=== PATIENT | female | born 1995 | race Caucasian/White ===

== ENCOUNTER 2019-05-22 09:57 | Outpatient (CLI) | payer OTHER, SELFPAY ==
--- NOTE | 2019-05-22 10:15 | US_ITS ---
WS: [id number] ULTRASOUND ABDOMEN CLINICAL INFORMATION: ACUTE RIGHT UPPER QUADRANT ABDOMINAL PAIN COMPARISON: None. FINDINGS: Liver Size: Normal. Craniocaudal length: 14.4 cm. Echogenicity: Normal. Surface nodularity: None. Mass (size and location): None. Bile ducts Intrahepatic ducts: Normal. Common bile duct diameter: 3.3 mm. Gallbladder Cholelithiasis Gallstones: Present Gallbladder sludge: None. Gallbladder wall thickening: None. Pericholecystic fluid: None. Sonographic Hernandez sign: Absent. Pancreas Normal as visualized. Spleen Splenomegaly: None. Craniocaudal length: 10.8 cm. Right kidney: Normal. Hydronephrosis: None. Size: 10.9 cm x 4.6 cm x 5.7 cm Left kidney: Normal. Hydronephrosis: None. Size: 11.1 cm x 5.1 cm x 5.4 cm. Abdominal aorta and IVC Visualized portions are normal. Ascites: None. US/US abdomen complete* [id number] IMPRESSION: 1. Liver is normal. 2. Cholelithiasis. Normal common bile duct. No gallbladder wall thickening or pericholecystic fluid. 3. No hydronephrosis in either kidney.
== END 2019-05-22 09:58 | disposition home or self-care (01) ==
LOC: RAD 10:06
PROVIDERS: Family Provider Nurse Practitioner Family; PCP Nurse Practitioner Family; Visit Provider Chiropractor Orthopedic
DX: K80.20 Calculus of gallbladder without cholecystitis without obstruction (principal)
CPT/HCPCS: 76700

== ENCOUNTER 2019-05-26 19:36 | Emergency (ER) | payer OTHER, SELFPAY ==
[2019-05-26] VITALS (7 sets, daily range): BP systolic 118–132; BP diastolic 75–86; PULSE 70–72; RESP 16–18; TEMP 36.7; O2SAT 96–99; BMI 33.3
[2019-05-26 23:20] LABS: Bilirubin Urine 1+ (NEGATIVE); Blood Urine Neg (Negative); Glucose Urine UA Norm (Normal); Ketones Urine Negative (Negative); Leukocyte Esterase Urine 1+ (Negative); Nitrate Urine Negative (Negative); Protein Urine Neg (Negative); Specific Gravity, Urine 1.025 (1.005-1.030); Urine Appearance Cloudy (CLEAR); Urine Color Yellow (Yellow); Urobilinogen Urine 1 mg/dL (Negative); pH Urine 5 (5-7)
[2019-05-26 23:21] LABS: Add Urine Culture? No; Amorphous Sediment Urine 3+; Bacteria Urine 1+; Squamous Epithelial Cell Urine 0-4 (0-5)
[2019-05-27] VITALS (27 sets, daily range): BP systolic 117–122; BP diastolic 58–75; PULSE 65–79; RESP 16–18; TEMP 36.8; O2SAT 96–99
--- NOTE | 2019-05-27 00:41 | ED_ITS ---
HPI - Abdominal Pain General: Chief Complaint: Abdominal Pain Stated Complaint: GALLBLADDER ISSUE Time Seen by Provider: 05/26/19 23:55 History of Present Illness: HPI narrative: Patient is a 24-year-old female comes into the ED with right upper quadrant abdominal pain. She had an ultrasound done of her gallbladder couple days ago and gallstones were found. She has been referred to general surgery in [place] and has an appointment set up with them on May 28. She is here in the ED because she is having pain for the past couple days and feels like her pain is getting worse. Patient says currently her pain is about a 7/10 when pain gets acutely worse she feels like she gets chills and shakes. Patient denies fever, chest pain, shortness of breath, diarrhea, constipation, blood in the stool, dysuria, hematuria, numbness tingling to the extremities, weakness to the extremities, headache or back pain. Review of Systems General: Reports: 10 or more systems reviewed and unremarkable except in HPI and below PFSH ED PFSH: Statuses (acute, chronic, etc) shown below reflect problem list status as previously entered and may not be historically accurate Social History Smoking and tobacco status: current every day smoker Physical Exam Narrative: EXAM NARRATIVE: Patient is sitting comfortably on bed when I entered the room for the history and physical exam. She appeared in no acute pain or distress. Const: COMMON NORMALS: oriented x3 HENMT: COMMON NORMALS: normocephalic HEAD & SCALP: normocephalic MOUTH: oral and palatal mucosa normal THROAT: posterior oropharynx normal and uvula midline Neck/C-Spine: COMMON NORMALS: supple GENERAL: Yes normal visual inspection Resp: COMMON NORMALS: normal respiratory effort, no retractions, no use of accessory muscles and clear to auscultation bilaterally AUSCULTATION: clear to auscultation bilaterally Cardio: COMMON NORMALS: regular rate, regular rhythm, S1 normal heart sound, S2 normal heart sound, no gallops, no clicks, no murmurs and peripheral pulses 2+ throughout RATE: regular rate RHYTHM: regular rhythm HEART SOUNDS: S1 normal and S2 normal PERIPHERAL PULSES: pulses 2+ throughout GI: COMMON NORMALS: normal to inspection, nondistended, normoactive bowel sounds, soft to palpation and no masses INSPECTION: Yes central obesity PALPATION: Yes soft and Yes tender (mild with positive elliott sign.) Details: RUQ : COMMON NORMALS: Yes no CVA tenderness BLADDER/KIDNEY EXAM: Yes no CVA tenderness Back/Pelvis: COMMON NORMALS: no CVA tenderness Extremity: COMMON NORMALS: normal to inspection Neuro: COMMON NORMALS: oriented x3 GAIT: Yes normal gait Skin: COMMON NORMALS: no rashes or lesions noted GENERAL SKIN EXAM: no rashes or lesions noted Course Vital Signs: Vital signs: Vital Signs Temperature 98.2 F 05/27/19 02:16 Pulse Rate 65 05/27/19 02:16 Respiratory Rate 18 05/27/19 02:16 Blood Pressure 117/58 05/27/19 02:16 Pulse Oximetry 97 05/27/19 02:16 MDM - Abdominal Pain MDM Narrative: Medical decision making narrative: Patient is a 24-year-old female who comes to the ED with right upper quadrant pain. She isn't ready been evaluated at another facility and she has had an ultrasound of the right upper quadrant and gallstones are present. She was then referred to general surgery and her appointment with them is on May 29. Patient was given some medications to control the pain and told to go to scheduled general surgery appointment on May 29. She can return to the ED for reevalutation if symptoms continue to worsen Before May 29 appointment. Lab Data: Attestation: I reviewed the patient's lab results. Labs: Lab Results 05/26/19 05/27/19 05/27/19 Range/Units 21:16 00:44 00:44 WBC 11.0 H (4.0-10.0) 10^3/ uL RBC 4.07 L (4.1-5.3) 10^6/u L Hgb 11.4 L (11.5-15.3) g/dL Hct 36.0 L (37.0-47.0) % MCV 88.5 (81-99) fL MCH 28.0 (28.0-34.0) pg MCHC 31.7 (30.0-36.0) g/dL RDW 14.8 (12.1-15.1) % Plt Count 228 (130-400) 10^3/c mm MPV 11.6 H (7.4-10.4) fL Neut % (Auto) 62.7 % Lymph % (Auto) 27.2 % Millard % (Auto) 7.9 % Eos % (Auto) 1.6 % Baso % (Auto) 0.3 % Neut # (Auto) 6.9 (1.8-7.7) 10^3/u L Lymph # (Auto) 3.0 (0.8-4.8) 10^3/u L Millard # (Auto) 0.9 (0.2-0.9) 10^3/u L Eos # (Auto) 0.2 (0.0-0.8) 10^3/u L Baso # (Auto) 0.0 (0.0-0.1) 10^3/u L Nucleated RBC % (a uto) 0 % Nucleated RBCs # 0.0 /100WBC Sodium 138 (136-145) mmol/L Potassium 3.7 (3.5-5.1) mmol/L Chloride 105 (98-107) mmol/L Carbon Dioxide 23 (22-29) mmol/L Anion Gap 13.7 (5-19) BUN 11 (6-20) mg/dL Creatinine 0.4 L (0.5-0.9) mg/dL GFR Calculation 197.8 H (90-130) mL/min Glucose 87 (74-109) mg/dL Calcium 9.7 (8.6-10.0) mg/Dl Total Bilirubin 0.4 (0.15-1.2) mg/dL AST 16 (0-32) U/L ALT 19 (0-33) U/L Alkaline Phosphata se 116 H (35-105) IU/L Total Protein 7.5 (6.6-8.7) g/dL Albumin 4.4 (3.5-5.2) g/dL Globulin 3.1 (1.3-4.6) g/dL Urine Color Yellow (Yellow) Urine Appearance Cloudy (CLEAR) Urine pH 5 (5-7) Ur Specific Gravit y 1.025 (1.005-1.030) Urine Protein Neg (Negative) Urine Glucose (UA) Norm (Normal) Urine Ketones Negative (Negative) Urine Occult Blood Neg (Negative) Urine Nitrate Negative (Negative) Urine Bilirubin 1+ H (NEGATIVE) Urine Urobilinogen 1 H (Negative) mg/dL Ur Leukocyte Martha ase 1+ H (Negative) Urine RBC None (0-2) /hpf Urine WBC 5-10 H (0-5) /hpf Ur Squamous Epith Cells 0-4 H (0-5) Amorphous Sediment 3+ Urine Bacteria 1+ H (NONE) Discharge Plan Discharge Patient Disposition: Home, Self-Care Clinical Impression: Abdominal pain Qualifiers: Abdominal location: right upper quadrant Qualified Code(s): R10.11 - Right upper quadrant pain Condition: Stable Discharge Orders: Discharge Order (Routine); Ordered 05/27/19 Ordered By: Rajesh Mancera Referrals: Jocelyne Sanabria FNP [Primary Care Provider] - Discharge Diet: Advance as tolerated Discharge Activity: Increase activity as tolerated Patient Instructions: Cholecystitis (ED), Abdominal Pain (ED) Activity Restrictions/Additional Instructions: Go to your previously set up appointment with general surgery on May 29 for evaluation of gallbladder and gallstones. Take hydrocodone prescription as needed for breakout pain. Drink plenty of fluids. Return to the ED if symptoms worsen. Discharge Date/Time: 05/27/19 02:17 Coding Level of Care Code ED Hand Bindery Assembly Worker for Alessandro Fong
[2019-05-27] MEDS: ondansetron 4 MG Tablet PO (00:45)
[2019-05-27] MEDS: HYDROcodone-acetaminophen 7.5-325 mg Tablet 1 TAB PO (00:45)
[2019-05-27 00:52] LABS: Basophils % 0.3 %; Eosinophils # 0.2 10^3/uL (0.0-0.8); Eosinophils % 1.6 %; Hemoglobin 11.4 g/dL (11.5-15.3); Lymphocytes % 27.2 %; Mean Corpuscular HGB Conc 31.7 g/dL (30.0-36.0); Mean Corpuscular Volume 88.5 fL (81-99); Mean Platelet Volume 11.6 fL (7.4-10.4); Monocytes # 0.9 10^3/uL (0.2-0.9); Monocytes % 7.9 %; Neutrophils # 6.9 10^3/uL (1.8-7.7); Neutrophils % 62.7 %; Nucleated Red Blood Cells % 0 %; Platelet Count 228 10^3/cmm (130-400); Red Blood Count 4.07 10^6/uL (4.1-5.3); Red Cell Distribution Width 14.8 % (12.1-15.1)
[2019-05-27 01:06] LABS: Alanine Aminotransferase 19 U/L (0-33); Albumin Level 4.4 g/dL (3.5-5.2); Alkaline Phosphatase 116 IU/L (35-105); Anion Gap 13.7 (5-19); Aspartate Amino Transferase 16 U/L (0-32); Blood Urea Nitrogen 11 mg/dL (6-20); Calcium 9.7 mg/Dl (8.6-10.0); Carbon Dioxide 23 mmol/L (22-29); Chloride 105 mmol/L (98-107); Globulin 3.1 g/dL (1.3-4.6); Glomerular Filtration Rate 197.8 mL/min (90-130); Glucose 87 mg/dL (74-109); Potassium 3.7 mmol/L (3.5-5.1); Sodium 138 mmol/L (136-145); Total Bilirubin 0.4 mg/dL (0.15-1.2); Total Protein 7.5 g/dL (6.6-8.7)
[2019-05-27] MEDS: HYDROcodone-acetaminophen 5-325 mg Tablet 1 TAB PO (02:11)
== END 2019-05-27 02:17 | disposition home or self-care (01) ==
PROVIDERS: Emergency Medicine; Emergency Provider Physician Assistant; Family Provider Nurse Practitioner Family; PCP Nurse Practitioner Family
DX: R10.11 Right upper quadrant pain (principal); F17.210 Nicotine dependence, cigarettes, uncomplicated
CPT/HCPCS: 80053; 81001; 85025; 99283; Q0162

== ENCOUNTER → 2020-06-19 11:39 | Outpatient (BNVA) | payer MEDICAID, SELFPAY | PROVIDERS: Family Provider Nurse Practitioner Family; PCP Nurse Practitioner Family; Visit Provider Emergency Medicine | DX: J02.9 Acute pharyngitis, unspecified (principal) | CPT/HCPCS: 87071; 87880 ==

== ENCOUNTER → 2023-03-24 11:53 | Outpatient (BNVA) | payer MEDICAID, SELFPAY | PROVIDERS: Family Provider Nurse Practitioner Family; PCP Nurse Practitioner Family; Visit Provider Nurse Practitioner Family | DX: S69.91XA Unspecified injury of right wrist, hand and finger(s), initial encounter (principal); W22.09XA Striking against other stationary object, initial encounter | CPT/HCPCS: 73110; 73130 ==

== ENCOUNTER → 2023-03-27 14:47 | Outpatient (BNVA) | payer MEDICAID, SELFPAY | PROVIDERS: Family Provider Nurse Practitioner Family; PCP Nurse Practitioner Family; Visit Provider Emergency Medicine | DX: M25.531 Pain in right wrist (principal); M79.641 Pain in right hand | CPT/HCPCS: 73110; 73130 ==

== ENCOUNTER 2024-09-18 16:21 | Emergency (ER) | payer MEDICAID, SELFPAY ==
--- NOTE | 2024-09-18 16:29 | ECG_ITS ---
[facility] Test Date: 2024-09-18 Pat Name: Garret Harris Department: Room: Gender: Female Filterer: : 1995 Requested By: Deshaun Ruiz Order Number: [id number] Stacey MD: Karen Vuong M.D. Measurements Intervals [place] Rate: 70 P: 51 TN: 126 QRS: 59 QRSD: 85 T: 42 QT: 389 QTc: 421 Interpretive Statements SINUS RHYTHM WITH SINUS ARRHYTHMIA Compared to ECG 08/22/2016 00:57:18 No significant changes Electronically Signed On 09-20-2024 23:29:56 CDT by Karen Vuong M.D. [email or web address] [id number]
[2024-09-18 16:39] VITALS: BP 151/76; PULSE 77; TEMP 36.8; O2SAT 97; BMI 35.1
[2024-09-18 16:40] VITALS: BP 112/82; PULSE 80; RESP 14; TEMP 37; O2SAT 98
[2024-09-18 17:50] LABS: Influenza A NEGATIVE (Negative); Influenza B NEGATIVE (Negative); Respiratory Syncytial Virus Ce NEGATIVE (Negative); SARS-CoV-2 PCR NEGATIVE (Negative)
--- NOTE | 2024-09-18 18:30 | XRR_ITS ---
PROCEDURE INFORMATION: Exam: XR Chest Exam date and time: 09/18/2024 6:34 PM Age: 29 years old Clinical indication: Pain; Chest pressure; Additional info: Chest pain, cough, congestion TECHNIQUE: Imaging protocol: Radiologic exam of the chest. Views: 1 view. COMPARISON: No relevant prior studies available. FINDINGS: Lungs: Unremarkable. No consolidation. Pleural spaces: Unremarkable. No pleural effusion. No pneumothorax. Heart/Mediastinum: Unremarkable. No cardiomegaly. Bones/joints: Unremarkable. XR/XR chest 1V portable [id number] IMPRESSION: No acute findings.
--- NOTE | 2024-09-18 18:44 | ECG_ITS ---
[facility] Test Date: 2024-09-18 Pat Name: Garret Harris Department: Room: Gender: Female Corporate Travel Consultant: : 1995 Requested By: Ron Santizo Order Number: [id number] Stacey MD: Karen Vuong M.D. Measurements Intervals [place] Rate: 64 P: 35 FL: 147 QRS: 49 QRSD: 89 T: 38 QT: 409 QTc: 423 Interpretive Statements SINUS RHYTHM WITH SINUS ARRHYTHMIA INTERPRETATION BASED ON A DEFAULT AGE OF 40 YEARS Compared to ECG 09/18/2024 16:29:49 No significant changes Electronically Signed On 09-20-2024 23:29:34 CDT by Karen Vuong M.D. [email or web address] [id number]
[2024-09-18 18:47] VITALS: BP 108/68; PULSE 63; O2SAT 98
[2024-09-18] MEDS: ketorolac 60 mg/2 mL INJ IM (19:43)
--- NOTE | 2024-09-18 20:04 | ED_ITS ---
HPI - Chest Pain General: Chief Complaint: Chest Pain Stated Complaint: cp Time Seen by Provider: 09/18/24 19:06 Source: patient Limitations: no limitations History of Present Illness: Patient is a 29-year-old female presenting with right-sided chest and shoulder pain ongoing for the past couple of days. The pain is predominantly located in the right chest and posterior right shoulder area. She describes the pain as mostly dull and achy with occasional sharp components. The pain is exacerbated by movement and activity, while rest provides some relief. The patient reports the pain intensity fluctuates throughout the day. She denies any specific trauma or inciting event. She has not taken any specific medications for the pain except for her regular medications. The patient sought medical attention due to family history of cardiac issues, though her symptoms appear musculoskeletal in nature. Related Data Home Medications ?Medication ?Instructions ?Recorded ?Confirmed fluticasone propionate 50 1 spray intranasal BID 04/0303/18/24 mcg/actuation nasal spray,suspension cetirizine 10 mg tablet (Zyrtec) 10 mg PO DAILY PRN 03/18/24 metformin 500 mg tablet,extended 500 mg PO DAILY 03/1803/18/24 release 24 hr Previous Rx's ?Medication ?Instructions ?Recorded nystatin 100,000 unit/mL oral 400,000 unit (4 mL) PO Q ID 10 days 03/18/24 suspension #160 mL cyclobenzaprine 10 mg tablet 10 mg PO BID PRN muscle s pasm #20 09/18/24 tabs naproxen 500 mg tablet,delayed 500 mg PO BID PRN pain #20 tabs 09/18/24 release Allergies Allergy/AdvReac Type Severity Reaction Status Date / Time doxycycline Allergy Intermediate ADR-Vomitin Verified 09/18/24 16:44 g venlafaxine (From Effexor) Allergy ADR-Halluci Verified 09/18/24 16:44 hamidaing [facility] ED PFS: Social History Smoking and tobacco/nicotine status: current every day tobacco/nicotine user (smokes a pack a day) Quit status (tobacco/nicotine): not considering quitting Second hand smoke exposure: Yes Alcohol intake: current Alcohol intake frequency: holidays/special occasions only Substance/Drug Use: never Physical Exam Const: COMMON NORMALS: no acute distress, average body habitus, alert and well nourished GENERAL APPEARANCE: cooperative ORIENTATION/CONSCIOUSNESS: Yes awake HENMT: COMMON NORMALS: normocephalic and atraumatic HEAD & SCALP: normocephalic and atraumatic Eye: COMMON NORMALS: conjunctivae normal CONJUNCTIVA: Yes conjunctivae normal Neck/C-Spine: GENERAL: Yes normal visual inspection Resp: COMMON NORMALS: normal respiratory effort, No retractions and No use of accessory muscles Cardio: COMMON NORMALS: regular rhythm and Peripheral pulses 2+ throughout RHYTHM: regular rhythm PERIPHERAL PULSES: Peripheral pulses 2+ throughout GI: COMMON NORMALS: Soft to palpation and non-tender PALPATION: Yes Soft to palpation Extremity: COMMON NORMALS: full ROM and no pedal edema Neuro: COMMON NORMALS: no focal motor deficits SENSORIUM/ORIENTATION: Yes alert Skin: COMMON NORMALS: no rashes or lesions noted GENERAL SKIN EXAM: no rashes or lesions noted Course Vital Signs: Vital signs: Vital Signs Temperature 98.6 F 09/18/24 16:40 Pulse Rate 63 09/18/24 18:47 Respiratory Rate 14 09/18/24 16:40 Blood Pressure 108/68 09/18/24 18:47 Pulse Oximetry 98 09/18/24 18:47 Oxygen Delivery Me thod Room Air 09/18/24 18:47 MDM - Chest Pain Medical Decision Making Review of Systems: Constitutional: Denies fever, denies fatigue Cardiovascular: Denies palpitations, denies leg swelling Respiratory: Denies shortness of breath, denies difficulty breathing Musculoskeletal: Positive for right shoulder and chest wall pain Skin: Denies redness or swelling Medications: 1. Lexapro - dose not specified 2. Metformin - for PCOS and weight loss Past Medical History: 1. Polycystic Ovary Syndrome (PCOS) 2. Obesity Physical Exam: General: Well-appearing, somewhat obese female in no acute distress Respiratory: Clear breath sounds bilaterally, no increased work of breathing Cardiovascular: Regular rhythm noted on exam Abdomen: Soft, non-tender, no guarding or rebound Extremities: No lower extremity swelling, no clubbing, cyanosis, or edema Musculoskeletal: Tenderness noted in right shoulder and chest wall area Lab Results: Influenza swab: Negative COVID-19 test: Negative RSV test: Negative Imaging and Other Relevant Results: EKG: Sinus rhythm with sinus arrhythmia, rate 64 bpm, QRS 89ms, QTc 418ms. No ischemic changes, ST elevations, or depressions. Chest X-ray: No acute findings per radiology Medical Decision Making: Summary Statement: 29-year-old female presenting with right-sided chest and shoulder pain, found to have normal vital signs, physical exam suggestive of musculoskeletal etiology, and normal diagnostic studies. Problem List: 1. Right-sided chest and shoulder pain, 2. Obesity, 3. PCOS Differential Diagnosis: 1. Musculoskeletal pain/strain, 2. Acute Coronary Syndrome (low risk), 3. Pulmonary Embolism (PERK negative, low risk), 4. Costochondritis ED Course: Patient evaluated with focused history and physical exam. Diagnostic studies including EKG and chest X-ray were unremarkable. PERC score negative for PE. Clinical presentation most consistent with musculoskeletal pain. Assessment and Plan: 1. Right-sided chest and shoulder pain: - Most consistent with musculoskeletal etiology - Plan for treatment with: a) Toradol injection in ED b) Prescription for muscle relaxants c) Scheduled anti-inflammatory medications - Return precautions reviewed for worsening pain, shortness of breath, or new symptoms - Follow up with PCP Lab Data I reviewed the patient's lab results. Radiology Impressions Chest X-Ray 09/18/24 18:30 IMPRESSION: No acute findings. Laboratory Results Influenza A (PCR) Negative (Negative) 09/18/24 16:34 Influenza Type B (PCR) Negative (Negative) 09/18/24 16:34 RSV (PCR) Negative (Negative) 09/18/24 16:34 SARS-CoV-2 (PCR) Negative (Negative) 09/18/24 16:34 All radiology interpretation(s) finalized by discharge Discharge Plan Discharge Patient Disposition: Home Clinical Impression: Atypical chest pain Condition: Stable Prescriptions: New naproxen 500 mg tablet,delayed release (DR/EC) 500 mg PO BID PRN (Reason: pain) Qty: 20 0RF cyclobenzaprine 10 mg tablet 10 mg PO BID PRN (Reason: muscle spasm) Qty: 20 0RF No Action fluticasone propionate 50 mcg/actuation spray,suspension 1 spray intranasal BID Rx Instructions: administer into each nostril cetirizine [Zyrtec] 10 mg tablet 10 mg PO DAILY PRN metformin 500 mg tablet extended release 24 hr 500 mg PO DAILY nystatin 100,000 unit/mL suspension 400,000 unit PO QID 10 Days Qty: 160 0RF Rx Instructions: swish and spit Discharge Orders: Discharge ED (Routine); Ordered 09/18/24 Ordered By: Bernardo Ruelas Referrals: Jocelyne Sanabria FNP [Primary Care Provider, [facility]] Discharge Activity: Increase activity as tolerated Patient Instructions: Chest Pain (ED), Opioid Safety, Pain Management Activity Restrictions/Additional Instructions: Take all medication as directed. Follow-up with your primary care provider for recheck next week. Return to the ER for any new or worsening symptoms or any other concerns. Print Language: Gibraltarian Coding Level of Care Code ED Internet Application Developer for Alessandro Fong
[2024-09-18 20:12] VITALS: BP 117/71; PULSE 60; RESP 16; O2SAT 97
== END 2024-09-18 20:15 | disposition home or self-care (01) ==
PROVIDERS: Student in an Organized Health Care Education/Training Program; Emergency Provider Student in an Organized Health Care Education/Training Program; PCP Nurse Practitioner Family
DX: R07.89 Other chest pain (principal); Z79.84 Long term (current) use of oral hypoglycemic drugs; Z11.52 Encounter for screening for COVID-19; F17.210 Nicotine dependence, cigarettes, uncomplicated
CPT/HCPCS: 71045; 87637; 93005; 96372; 99284; J1885

== ENCOUNTER 2025-05-08 15:27 | Outpatient (CLI) | payer MEDICAID, SELFPAY ==
--- NOTE | 2025-05-08 15:36 | USR_ITS ---
PROCEDURE INFORMATION: Exam: US After First Trimester, Transabdominal Exam date and time: 05/08/2025 3:40 PM Age: 29 years old Clinical indication: Screening exam; Routine US, uterus; Additional info: Supervision of normal Additional history: Per patient, G7, P2. LMP 01/01/2025, estimated date of confinement 10/08/2025, clinical gestational age 18 weeks 1 day. LABS AND CLINICAL REPORTS: Last menstrual period start date: 01/01/2025 Gestational age (Established): 18 w 1 d Estimated due date (Established): 10/08/2025 TECHNIQUE: Imaging protocol: Real-time transabdominal obstetrical ultrasound of the maternal pelvis and a second or third trimester with image documentation. Total images: 71 COMPARISON: 1. US abdomen complete* [id number] 05/22/2019 10:32 AM 2. US OB >= 14 weeks fetus [id number] 09/01/2018 12:49 PM FINDINGS: Gestation: Single live intrauterine gestation vertex presentation. heart rate: 146 bpm presentation and position: Placenta: Posterior placenta. Lower margin of the placenta lies well above the internal cervical os. Amniotic fluid (Qualitative): Amniotic fluid is normal for gestational age. Amniotic fluid index: Not measured. ANATOMY: midline falx: Midline cerebellum: Cerebellum transverse diameter 18 mm (17 weeks 6 days). lateral ventricles: Normal cisterna magna: 0.3 cm choroid plexus: Obscured by position face: Normal nose and lip anatomy. Unable to obtain facial profile view. heart four-chamber view, heart size and position: Four-chamber. heart right ventricular outflow tract: Obscured by position. heart left ventricular outflow tract: Normal LVOT. kidneys: Obscured by position. stomach: Obscured by position. urinary bladder: Obscured by position. spine: Although transverse spine views were not obtainable, otherwise spine paired parallel ossification centers insofar as the anatomy is visualized. Umbilical cord and insertion: Obscured by position. upper limbs: Normal upper extremity anatomy. lower limbs: Obscured by position. external genitalia: Not assessed. BIOMETRY: Gestational age (AUA): 17 weeks 6 days +/-1 week 2 days Estimated due date (AUA): 12/03/2025 Estimated weight: 214.17 g +/-32 g, 29.8%. Hadlock 1984 Biparietal diameter (BPD): 3.82 cm. EGA (BPD) is 17 w 5 d. 28 % percentile Head circumference (HC): 14.97 cm. EGA (HC) is 18 w 0 d. 37 % percentile Abdominal circumference (AC): 12.3 cm. EGA (AC) is 18 w 0 d. 40.4 % percentile Femur length (FL): 2.57 cm. EGA (FL) is 17 w 6 d. 31.1 % percentile HC/AC: 1.22. (Normal range: 1.08 - 1.28) FL/HC: 17.17. (Normal range: 15.63 - 17.94) FL/BPD: 67.28 FL/AC: 20.89 MATERNAL: Uterus: Unremarkable. Cervix: Cervical cervix closed, 5.3 cm lung. Right ovary/adnexa: Obscured by lack of adequate acoustic window. Left ovary/adnexa: Obscured by lack of adequate acoustic window. Urinary bladder: Midline bladder bubble. Intraperitoneal space: No intraperitoneal free fluid. Soft tissues: Midline abdominal wall cord entry site. Other findings: Cisterna magna 0.3 cm. Contiguous diaphragm. US/US OB >= 14 weeks fetus [id number] IMPRESSION: 1. Single live intrauterine gestation vertex position at 17 weeks 6 days +/-1 week 2 days corresponding favorably with patient's clinical dates. Estimated date of delivery 10/10/2025. 2. Regular cardiac rhythm 146 bpm. 3. No observations of placental or anatomic abnormality to the extent the anatomy is visualized. 4. Limited visualization of facial profile and transverse views of the vertebral column associated with position.
== END 2025-05-08 15:28 | disposition home or self-care (01) ==
LOC: RAD 15:29
PROVIDERS: PCP Nurse Practitioner Family; Visit Provider Nurse Practitioner Family
DX: Z34.82 Encounter for supervision of other normal pregnancy, second trimester (principal); R10.9 Unspecified abdominal pain; Z3A.18 18 weeks gestation of pregnancy; R09.89 Other specified symptoms and signs involving the circulatory and respiratory systems
CPT/HCPCS: 76805